=== PATIENT | female | born 1995 | race Caucasian/White ===

== ENCOUNTER 2025-06-13 11:30 | Emergency (ER) | payer BC, SELFPAY ==
--- OUTSIDE RECORDS SUMMARY | 2011-07-01 16:15 | XMS_ITS | Encounter Summary ---
Author Organization [facility] Address [address] [place] [address] Care Team Providers Care Roentgenologist Name Role Phone Juan C Preston MD Primary Care Provider [phone] Encounter Details Date Type Department Care Team (Late st Contact Info) Description 07/01/2011 4:15 PM CDT [facility] in [facility] [address] [place] [phone] Kandis Sutherland PA-C [facility] [address] [place] [address] [address] [place] [address] Social History Tobacco Use Types Packs/Day Years Used Date Smoking Tobacco: Never Smokeless Tobacco: Never Comments:no 2nd hand smoke a t home Alcohol Use Standard Drinks/Week Comments No 0 (1 standard drink = 0.6 oz pur e alcohol) Comments No Sex and Gender Information Value Date Recorded Sex Assigned at Female 10/23/2020 7:21 AM PHYSICIAN'S ASSISTANT Legal Sex Female 4:15 AM PHYSICIAN'S ASSISTANT Gender Identity Female 10/23/2020 7:21 AM PHYSICIAN'S ASSISTANT Sexual Orientation Don't know 07/29/2021 9: 43 PM PHYSICIAN'S ASSISTANT Sexual Orientation Straight 07/29/2021 9: 43 PM PHYSICIAN'S ASSISTANT documented as of this encounter Plan of Treatment Not on file documented as of this encounter Visit Diagnoses Not on filedocumented in this encounter Care Teams Roentgenologist Relationship Specialty Start Date End Date Juan C Preston MD [facility] Luciano Francis [address] [facility] [address] [place] [address] PCP - General 10/15/00 12/17/20 documented as of this encounter
--- OUTSIDE RECORDS SUMMARY | 2025-06-11 11:20 | XMS_ITS | Encounter Summary ---
Author Organization [facility] Address [address] [place] [address] Care Team Providers Care Air Conditioning Insulation Installer Name Role Phone Pcp, Pt Declines MD Primary Care Provider [phone] Reason for Visit * Reason Comments COUGH Encounter Details Date Type Department Care Team (Late st Contact Info) Description 06/11/2025 11:20 AM CDT Office Visit [facility] [address] [address] Myriam Healy V, DO [address] [place] [address] Sinusitis, unspecified chronicity, unspecified location (Primary Dx); Allergic rhinitis, unspecified seasonality, unspecified trigger Social History Tobacco Use Types Packs/Day Years Used Date Smoking Tobacco: Never Alcohol Use Standard Drinks/Week Comments Not Currently 0 (1 standard drink = 0.6 oz pur e alcohol) Comments No Sex and Gender Information Value Date Recorded Sex Assigned at Not on file Legal Sex Female 8:26 AM CDT Gender Identity Not on file Sexual Orientation Not on file documented as of this encounter Last Filed Vital Signs Vital Sign Reading Time Taken Comments Blood Pressure 110/81 06/11/2025 10:57 AM CDT Pulse 107 06/11/2025 10:57 AM CDT Temperature 36.2 C (97.2 F) 06/11/2025 10:57 AM CDT Respiratory Rate 18 06/11/2025 10:57 AM CDT Oxygen Saturation 98% 06/11/2025 10:57 AM CDT Inhaled Oxygen Concentration - - Weight 113.4 kg (250 lb) 06/11/2025 10:57 AM CDT Height 154.9 cm (5' 1) 06/11/2025 10:57 AM CDT Body Mass Index 47.24 06/11/2025 10:57 AM CDT documented in this encounter Nursing Notes * Rahel Mendoza LPN - 06/11/2025 11:20 AM CDT Leydi Banks is a 30 y.o.female presents to the Urgent Care for COUGH What cold symptoms are you experiencing?Cough Are you experiencing any wheezing? YES Do you have any new chest pain or shortness of breath? YES Are you coughing up any mucus? YES Do you have a history of asthma? YES Nose/Sinus/Ear Do you have a runny nose? YES Are you sneezing? YES Are you experiencing any nasal congestion? YES Are you experiencing any headaches?YES Do you have any facial or dental pain? YES Do you have any ear pain? YES Do you have any eye itching or irritation? YES Have you had a history of sinus infections? YES How long have you had these symptoms? 5 day(s) Have you had a fever? YES How high was your fever? felt feverish but not measured Are there any treatments you have tried? YES What products have you tried? otc Did the treatment help your symptoms? Has not changed Patient requests an excuse letter for work/school: No documented in this encounter Plan of Treatment Not on file documented as of this encounter Visit Diagnoses Diagnosis Sinusitis, unspecified chronicity, unspecified location- Primary Allergic rhinitis, unspecified seasonality, unspecified trigger documented in this encounter Care Teams Air Conditioning Insulation Installer Relationship Specialty Start Date End Date Pcp, [place] [address] PCP - General 03/27/20 documented as of this encounter
[2025-06-13] VITALS (18 sets, daily range): BP systolic 124–135; BP diastolic 65–84; PULSE 85–107; RESP 16–34; TEMP 36.6; O2SAT 89–96; BMI 48.2
--- NOTE | 2025-06-13 12:26 | CRLHL7_ITS ---
For Patients: As a result of the Cures Act, medical imaging exams and procedure reports are released immediately into your electronic medical record. You may view this report before your referring provider. If you have questions, please contact your health care provider. INDICATION: Shortness of breath, cough, and wheezing COMPARISON: None. TECHNIQUE: Frontal and lateral radiographic views of the chest. FINDINGS: No pneumothorax. No pleural effusion. No definite focal pulmonary consolidation. Normal heart size. No evident acute displaced rib fracture. IMPRESSION: No acute cardiopulmonary findings. Dictated by Dion Coburn MD @ 06/13/2025 1:40:55 PM (Electronically Signed)
--- OUTSIDE RECORDS SUMMARY | 2025-06-13 12:49 | XMS_ITS | Clinical Summary ---
Author Organization [facility] Address [address] [place] [address] Care Team Providers Care Materials Branch Chief Name Role Phone Pcp, Pt Declines Primary Care Provider [phone] Source Comments You are receiving this document as you are listed as the primary care provider,follow-up provider, or the patient has been referred to you for consultation.This is in compliance with the Medicare and[facility] Hospital[facility] EHR Incentive Program,which states Providers who transition their patient to another setting of careor provider of care or refers their patient to another provider of care shouldprovide summary care record for each transition of care or referral. [facility] Allergies Active Allergy Reactions Criticality Noted Date Comments Other Nausea And Vomiting Medium 03/27/2020 ANTIBIOTICS , stomach upset Medications etonogestrel-et hinyl estradiol (NUVARING) 0.12-0.015 MG/24HR vaginal ring INSERT VAGINALLY AND LEAVE IN PLACE FOR 3 CONSECUTIVE WEEKS THEN REMOVE AND INSERT NEW RING. USE CONTINUOUSLY. 0 Active omeprazole (PRILOSEC) 20 MG capsule 0 Active predniSONE (DELTASONE) 50 MG tablet Take 1 Tablet by mouth daily. 7 Tablet 0 Active Additional Information Patient not taking.Reported on 08/10/2024 gabapentin (NEURONTIN) 100 MG capsule Take 1-3 capsules up to 3 times daily 270 Capsule 3 0 Active metFORMIN XR (GLUCOPHAGE XR) 500 MG 24 hour release tablet Take by mouth. 4 Active traZODone (DESYREL) 50 MG tablet Take 1-2 Tablets (50-100 mg) by mouth at bedtime as needed. 4 Active buPROPion (WELLBUTRIN XL) 300 MG 24 hour release tablet Take 1 Tablet (300 mg) by mouth daily. 4 Active ALBUterol sulfate HFA 108 (90 Base) MCG/ACT inhaler 1-2 Puffs every 4 hours as needed. 5 Active amoxicillin-cla vulanate (AUGMENTIN) 875-125 mg per tablet Take 1 Tablet by mouth every 12 hours. 5 Active benzonatate (TESSALON) 100 MG capsule Take 1 Capsule (100 mg) by mouth three times a day as needed. 5 Active eszopiclone (LUNESTA) 1 MG tablet Take 1 Tablet (1 mg) by mouth at bedtime as needed. 5 Active hydrOXYzine HCl (ATARAX) 50 MG tablet Take 1-2 Tablets (50-100 mg) by mouth daily as needed. 5 Active zolpidem (AMBIEN) 5 MG tablet Take 1 Tablet (5 mg) by mouth at bedtime as needed. 5 Active buPROPion (WELLBUTRIN XL) 150 MG 24 hour release tablet Take 1 Tablet (150 mg) by mouth every morning. 5 Active gabapentin (NEURONTIN) 300 MG capsule Take 1 Capsule (300 mg) by mouth three times a day. 5 Active omeprazole (PRILOSEC) 20 MG capsule 1 capsule 30 minutes before morning meal Orally Once a day; Duration: 30 days Active predniSONE (DELTASONE) 20 MG tablet Take 2 Tablets (40 mg) by mouth daily. 5 Active predniSONE (DELTASONE) 20 MG tabletIndicatio ns:Allergic rhinitis, unspecified seasonality, unspecified trigger Take 60 mg po Q am x 3 days then take 40 mg po Q am x 3 days then take 20 mg po Q am Take with Food to Avoid GI Upset and Take in the morning or may cause difficulties sleeping 18 Tablet 5 Active doxycycline hyclate (VIBRA-TABS) 100 MG tabletIndicatio ns:Sinusitis, unspecified chronicity, unspecified location Take 1 Tablet (100 mg) by mouth two times a day for 10 days. 20 Tablet 5 06/21/20 25 Active Encounters Date Type Department Care Team Description 06/11/2025 11:20 AM CDT [facility] [place] [address] [place] [address] Myriam Healy DO Sinusitis, unspecified chronicity, unspecified location (Primary Dx); Allergic rhinitis, unspecified seasonality, unspecified trigger from Last 3 Months Social History Tobacco Use Types Packs/Day Years Used Date Smoking Tobacco: Never Tobacco Cessation:Counseling Given: Not Answered Alcohol Use Standard Drinks/Week Comments Not Currently 0 (1 standard drink = 0.6 oz pur e alcohol) Comments No Sex and Gender Information Value Date Recorded Sex Assigned at Not on file Legal Sex Female 8:26 AM CDT Gender Identity Not on file Sexual Orientation Not on file Last Filed Vital Signs Vital Sign Reading [...] Mass Index 47.24 06/11/2025 10:57 AM CDT Plan of Treatment Health Maintenance Due Date Last Done Comments Cervical Cancer Screening Due 1997 Hep C Screening (Preventive Services) 1997 HIV Screening (Preventive Services) 2013 Adult Preventive Visit 2015 HepB Vaccine (1) 2016 DTaP/Tdap/Td Vaccine (6 - Tdap) 05/16/2019 05/16/2009, 03/01/2002, 1997, Additional history exists COVID-19 Vaccine (4 - season) 2025 10/19/2021, 12/21/2020, 11/23/2020 Influenza Vaccine (#1) 2025 , 06/25/2018, 06/20/2009, Additional history exists Zoster/Shingles Vaccine (1 of 2) 2047 Hib Vaccine Aged Out 1997, 09/22, 1997 No longer eligible based on patient's age to complete this topic IPV (Polio) Vaccine Completed 03/01/2002, 1997, 1997 MCV4 Vaccine Completed 12/07/2013 HepA Vaccine Completed 01/23/2015, 12/07/2013 HPV Vaccine Completed 06/25/2018, 01/20, 01/23/2015 Meningococcal B Vaccine Aged Out No l onger eligible based on patient's age to complete this topic Pneumococcal Vaccine Aged Out No long er eligible based on patient's age to complete this topic Insurance [facility] Collusion [facility] Collusion [facility] Care Teams Materials Branch Chief Relationship Specialty Start Date End Date Pcp, Pt MD Balaji [place], [place] [address] PCP - General 03/27/20
--- OUTSIDE RECORDS SUMMARY | 2025-06-13 12:49 | XMS_ITS | Patient Health Record ---
Author Organization [facility] Address [address] [place] [address] Care Team Providers Care Window Installation Subcontractor Name Role Phone Jose Reddyshakira Primary Care Provider [phone] Darci Neves Unavailable [phone] Allergies No Known Allergies Reason For Referral No Information Medications Medication SIG (Take, Route, Frequency, Duration) Notes Start Date End Date Status Omeprazole 20 MG 1 capsule 30 minutes before morning meal Orally Once a day; Duration: 30 days Due for Annual exam, med check Active NuvaRing 0.12-0.015 MG/24HR [address] for 3 weeks, remove, and replace with a new ring after 7 day break Vaginal monthly; Duration: 90 days Unknown diazePAM 5 MG 1/2 to 1 tablet as needed vaginally once for vaginal pain; Duration: 10 days 09/28/2021 Unknown Social History Tobacco Use: Social History Observation Description Date Details (start date - stop date) Never Smoker NA - NA Tobacco Use/Smoking Question Answer Notes Are you a nonsmoker Problems Problem Type SNOMED Code ICD Code Onset Dates Problem Status W/U Status Risk Notes Problem Pubertal menorrhagia (finding) (378941499) Excessive menstruation at puberty (N92.2) Active confirmed Problem Anxiety (15134566) Anxiety (F41.9) Active confi rmed Problem von Willebrand disease (435007864) Von Willebrand disease (D68.0) Active confirmed Problem Menometrorrhagia (909454893) Menometrorrhagia (N92.1) Active confirmed Problem Mild recurrent major depression (67786521) Mild episode of recurrent major depressive disorder (F33.0) Active confirmed Problem Excessive and frequent menstruation (726966882) Excessive and frequent menstruation (N92.0) Active confirmed Plan Of Treatment No Information Insurance Providers Payer Name Payer Address Payer Phone Subscriber Number Group Number Insured Name Patient Relationship to Insured Coverage Start Date Coverage End Date [employer] - (Client Bill) [address] [place] [address] [id number] Leydi Banks Self - patient is the insured Medical (General) History Medical History History ICD Code Anemia Von Willebrands Disease Depression\Anxiety Asthma Surgical History Surgery Date(Month/Year) Tonsil and adniods Hymenectomy 2013
--- OUTSIDE RECORDS SUMMARY | 2025-06-13 12:49 | XMS_ITS | Encounter Summary ---
Author Organization [facility] Address [address] [place] [address] Care Team Providers Care Glazier Structural Glass Name Role Phone Brian Hammer MD Primary Care Provider [phone] Encounter Details Date Type Department Care Team (Late st Contact Info) Description 08/13/2021 [facility] [address] [place] [address] April Schmidt MD [address] [facility] [place] [address] Social History Tobacco Use Types Packs/Day Years Used Date Smoking Tobacco: Never Smokeless Tobacco: Never Comments:no 2nd hand smoke a t home Alcohol Use Standard Drinks/Week Comments No 0 (1 standard drink = 0.6 oz pur e alcohol) Comments No Sex and Gender Information Value Date Recorded Sex Assigned at Female 10/23/2020 7:21 AM PSYCHOLOGY TEACHER Legal Sex Female 4:15 AM PSYCHOLOGY TEACHER Gender Identity Female 10/23/2020 7:21 AM PSYCHOLOGY TEACHER Sexual Orientation Don't know 07/29/2021 9: 43 PM PSYCHOLOGY TEACHER Sexual Orientation Straight 07/29/2021 9: 43 PM PSYCHOLOGY TEACHER documented as of this encounter Plan of Treatment Not on file documented as of this encounter Visit Diagnoses Not on filedocumented in this encounter Care Teams Glazier Structural Glass Relationship Specialty Start Date End Date Brian Hammer MD [facility] [address] [place] [address] PCP - General Family Medicine 12/18/20 documented as of this encounter
--- OUTSIDE RECORDS SUMMARY | 2025-06-13 12:49 | XMS_ITS | Clinical Summary ---
Author Organization [facility] Address [address] [place] [address]. [place] [address] Care Team Providers Care Video Game Engineer Name Role Phone Brian Hammer MD Primary Care Provider [phone] Allergies Active Allergy Reactions Criticality Noted Date Comments No Known Allergies 03/16/2001 Medications norethindrone-e thinyl estradiol-iron (MICROGESTIN FE1.5/30) 1.5-30 MG-MCG tabletIndicatio ns:Menorrhagia Take 1 tablet by mouth daily Skip placebo pills until 3 packs are finished, take placebo pills in 3rd pack to have menses. 3 Package 3 12/07/2013 Active Active Problems Problem Noted Date Diagnosed Date Abnormal involuntary movement 11/10/2007 Overview (06/23/2015): Problem list name updated by automated process. Provider to review Sinusitis, chronic 02/28/2005 Overview (06/22/2015): Problem list name updated by automated process. Provider to review Resolved Problems Problem Noted Date Diagnosed Date Resolved Date Hypertrophy of tonsils with hypertrophy of adenoids 02/28/2005 11/10/2007 Overview (06/22/2015): Problem list name updated by automated process. Provider to review Immunizations Immunization Administration Dates Next Due COVID-19 Monovalent 18+ (Moderna) 12/21/2020,12/2020 DTAP (<7y) 03/01/2002 HEPA 12/07/2013 HIB (PRP-T) 06/26/1998, 8,1997, 7 HepB 1997,1997,1997 Historical DTP/aP 06/26/1998, 8,1997, 7 Influenza (IIV3) PF 08/18/2007 Influenza Intranasal Vaccine 06/20/2009,06/24/20 08 MMR (MMRII) 03/01/2002,06/26/1998 Meningococcal ACWY (Menactra ) 12/07/2013 Poliovirus, inactivated (IPV) 03/01/2002 ,06/26/1998,1997, 7 TDAP Vaccine (Boostrix) 05/16/2009 Varicella (Varivax) 06/02/2007,06/26/1998 Family History Medical History Relation Comments Genitourinary Problems Mother recurrent UTI - none as child Relation Status Comments Father Alive Mother Alive Social History Tobacco Use Types Packs/Day Years Used Date Smoking Tobacco: Never Smokeless Tobacco: Never Comments:no 2nd hand smoke a t home Alcohol Use Standard Drinks/Week Comments No 0 (1 standard drink = 0.6 oz pur e alcohol) Adolescent Education Answer Date Record ed Getting School Help Needed Not on file 07/08 Comments No Sex and Gender Information Value Date Recorded Sex Assigned at Female 10/23/2020 7:21 AM ESTERS AND EMULSIFIERS SUPERVISOR Legal Sex Female 4:15 AM ESTERS AND EMULSIFIERS SUPERVISOR Gender Identity Female 10/23/2020 7:21 AM ESTERS AND EMULSIFIERS SUPERVISOR Sexual Orientation Don't know 07/29/2021 9: 43 PM ESTERS AND EMULSIFIERS SUPERVISOR Sexual Orientation Straight 07/29/2021 9: 43 PM ESTERS AND EMULSIFIERS SUPERVISOR Last Filed Vital Signs Vital Sign Reading Time Taken Comments Blood Pressure 150/93 12/18/2020 5:53 PM CDT Pulse 106 12/18/2020 5:53 PM CDT Temperature 36.5 C (97.7 F) 12/18/2020 11:07 AM CDT Respiratory Rate 16 12/18/2020 11:0 7 AM CDT Oxygen Saturation 93% 12/18/2020 5:53 PM CDT Inhaled Oxygen Concentration - - Weight 72.9 kg (160 lb 11.5 oz) 12/07/2013 3:24 PM CDT Height 156 cm (5' 1.42) 12/07/2013 3:24 PM CDT Body Mass Index 29.96 12/07/2013 3:24 PM CDT Plan of Treatment Health Maintenance Due Date Last Done Comments ADVANCE CARE PLANNING 1997 ANNUAL REVIEW OF HM ORDERS 1997 HIV SCREENING 2012 YEARLY PREVENTIVE VISIT 12/07/2014 12/08/19 14, 05/16/2009, 06/16/2001 HEPATITIS C SCREENING 2015 PAP 2018 DTAP/TDAP/TD VACCINE (7 - Td or Tdap) 05/16/2019 05/16/2009, 03/01/2002, 06/26/1998, Additional history exists PHQ-2 (once per calendar year) 2024 COVID-19 VACCINE ( season) 2025 12/21/2020, 11/23/2020 INFLUENZA VACCINE (#1) 2025 8, 09/22/2016, 09/22/2016, Additional history exists ZOSTER VACCINE (1 of 2) 2047 HEPATITIS B VACCINE Completed 1997, 1997, 1997, Additional history exists MENINGITIS VACCINE Completed 12/07/2013, 12/07/2013 HPV VACCINE Completed 06/25/2018, 01/20, 01/31/2017, Additional history exists PNEUMOCOCCAL VACCINE: PEDIATRICS (0 to 5 YEARS) AND AT-RISK PATIENTS (6 to 49 YEARS) Aged Out No longer eligible based on patient's age to complete this topic Insurance [facility] Care Teams Video Game Engineer Relationship Specialty Start Date End Date Brian Hammer MD [facility] [address] [place] [address] PCP - General Family Medicine 12/18/20
--- OUTSIDE RECORDS SUMMARY | 2025-06-13 12:49 | XMS_ITS | Encounter Summary ---
Author Organization [facility] Address [address] [place] [address]. [place] [address] Care Team Providers Care Production Supv Name Role Phone Juan C Preston MD Primary Care Provider [phone] Brian Hammer MD Primary Care Provider [phone] Encounter Details Date Type Department Care Team (Late st Contact Info) Description 06/03/2001 Abstract [facility] [address] [place] [address] Rohini Maldonado Social History Tobacco Use Types Packs/Day Years Used Date Smoking Tobacco: Never Assessed Comments:no 2nd hand smoke a t home Alcohol Use Standard Drinks/Week Comments Not Asked 0 (1 standard drink = 0.6 oz pur e alcohol) Comments Unknown Sex and Gender Information Value Date Recorded Sex Assigned at Female 10/23/2020 7:21 AM TRAY SETTER Legal Sex Female 4:15 AM TRAY SETTER Gender Identity Female 10/23/2020 7:21 AM TRAY SETTER Sexual Orientation Don't know 07/29/2021 9: 43 PM TRAY SETTER Sexual Orientation Straight 07/29/2021 9: 43 PM TRAY SETTER documented as of this encounter Plan of Treatment Not on file documented as of this encounter Visit Diagnoses Not on filedocumented in this encounter Care Teams Production Supv Relationship Specialty Start Date End Date Juan C Preston MD [facility] [address] [facility] [address] [place] [address] PCP - General 10/15/00 12/17/20 Brian Hammer MD [facility] [address] [place] [address] PCP - General Family Medicine 12/18/20 documented as of this encounter
--- OUTSIDE RECORDS SUMMARY | 2025-06-13 12:49 | XMS_ITS | Clinical Summary ---
Author Organization [facility] Address [address] [place] [address] Care Team Providers Care Director Of Philanthropy Name Role Phone [facility], [facility] Primary Care Prov ider Apple Lee PA Unavailable [phone] Unavailable [phone] Unavailable [phone] Allergies Active Allergy Reactions Criticality Noted Date Comments Doxycycline Stomach Upset High 11/11/2016 side effect - pt reported Medications omeprazole (PRILOSEC) 20 mg Delayed-Release capsule Take 20 mg by mouth. PRN 03/12/20 20 Active gabapentin (NEURONTIN) 100 mg capsule 4 capsules nightly 10/05/19 22 Active traZODone (DESYREL) 50 mg tablet 2 tabs nightly 10/29/19 22 Active albuterol HFA (PRO-AIR; VENTOLIN; PROVENTIL) 90 mcg/actuation inhalerIndicatio ns:Breathing problem,Exercise induced bronchospasm (HC) Inhale 1-2 Puffs by mouth every 4 hours if needed for Shortness Of Breath or Wheezing. 1 Each 3 08/24/20 24 Active iron,carbonyl/as corbic acid (VITRON-C ORAL) Take by mouth. Active buPROPion 300 mg Extended-Release tabletIndication s:Morbid obesity with BMI of 45.0-49.9, adult (HC) Take 1 Tablet (300 mg) by mouth once daily in the morning. To be started after completing 2 weeks on the 150 mg daily dose if tolerating well. 30 Tablet 1 03/21/20 25 Active buPROPion 150 mg Extended-Release tabletIndication s:Morbid obesity with BMI of 45.0-49.9, adult (HC) Take 1 Tablet (150 mg) by mouth once daily in the morning. 14 Tablet 03/21/20 25 Active fluticasone propion-salmeter oL (ADVAIR) 100-50 mcg/dose diskus inhalerIndicatio ns:Subacute cough Inhale 1 Puff by mouth two times daily. 60 Each 03/31/20 25 Active Zepbound 7.5 mg/0.5 mL subcutaneous vialIndications: Morbid obesity with BMI of 45.0-49.9, adult (HC) INJECT 0.5 ML (7.5 MG) UNDER THE SKIN ONCE WEEKLY (0.5ML= 50 UNITS) 2 mL 2 04/13/20 25 Active benzonatate (TESSALON) 100 mg capsuleIndicatio ns:Acute cough Take 1 Capsule (100 mg) by mouth 3 times daily if needed for Cough. 21 Capsule 05/22/20 25 Active benzonatate 100 mg capsuleIndicatio ns:Acute cough Take 1 Capsule (100 mg) by mouth 3 times daily if needed for Cough. 21 Capsule 03/08/20 25 025 Discontinued Active Problems Patient Care Coordination No te Formatting of this note migh t be different from the original. Weight Management Patient Binder: Request sent 10/13/2023 Problem Noted Date Diagnosed Date Cervical cancer screening 01/26/2025 Overview (01/26/2025): 12/2024 NIL/HPV negative. Plan: Pap/HPV due 12/2029. 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 Provider to review Encounters Date Type Department Care Team Description 06/13/2025 Travel 05/20/2025 Refill [facility] [address] [place] [address] Edwina Valenzuela NP Refill Request (Benzonatate) 05/11/2025 1:00 PM CDT Telemedicine [facility] [address] [facility] [address] Medical Nutrition Therapy; Telehealth ([facility] ) 04/13/2025 Refill [facility] [address] [place] [address] Apple Lee PA Refill Request (Zepbound) 03/31/2025 12:35 PM CDT Office Visit [facility] [address] [facility] [place] [address] Ana Salvador PA Cough (for weeks) 03/31/2025 Travel from Last 3 Months Immunizations Immunization Administration Dates Next Due COVID-19 vaccine (Moderna Kevin hubert 50mcg/0.25mL) PF, MDV 10/19/2021 DTP 06/26/1998, 8,1997,07/25 DTaP 03/01/2002 HPV 9 (Gardasil 9) 06/25/2018,01/31/2017 Hepatitis A (Peds) 01/23/2015,12/07/2013 Hepatitis B, Unspecified 1997,1997,0 1997 Hib Conjugate, Unspecified 06/26/1998,,1997,07/25 Human Papilloma Virus Vaccine 01/23/2015 Inactivated Polio Vaccine 03/01/2002,01/1998,1997,07/25 Influenza Virus, Unspecified 09/22/2016, 06/20/2009,06/24/2008,08/18 Influenza, IIV4 06/25/2018 MMR 03/01/2002,06/26/1998 Meningococcal Vaccine (Menactra) 12/07/2013 Oral Polio Vaccine 1997,1997 Tdap 05/16/2009 Varicella Vaccine 06/02/2007,06/26/1998 Family History Medical History Relation Name Comments Anxiety disorder Father Depression Father Anxiety disorder Half-Brother Depression Half-Brother Anxiety disorder Mother Depression Mother Relation Name Status Comments Father Half-Brother Alive Mother Social History Tobacco Use Types Packs/Day Years Used Date Smoking Tobacco: Never Passive Smoke Exposure: Never Smokeless Tobacco: Never Tobacco Cessation:Counseling Given: Yes Alcohol Use Standard Drinks/Week Comments Yes 0 (1 standard drink = 0.6 oz pur e alcohol) rarely PHQ-2 Answer Date Recorded PHQ-2 TOTAL SCORE 0 03/31/2025 Social Connections Answer Date Recorded Do you often feel lonely or isolated from those around you? 0 08/19/2024 Financial Resource Strain Answer Date R ecorded Difficulty of Paying Living Expenses 3 08/19/2024 Difficulty of Paying Living Expenses Not on file 08/19/2024 Food Insecurity Answer Date Recorded Do you worry your food will run out before you are able to buy more? 1 08/19/2024 Transportation Needs Answer Date Record ed Does lack of transportation keep you from medica l appointments? 1 08/19/2024 Does lack of transportation keep you from work, meetings or getting things that you need? 1 08/19/2024 Housing Stability Answer Date Recorded What is your housing situation today? 1 08/19/2024 Utilities Answer Date Recorded Do you have trouble paying f or utilities (for example, heat, electricity, water, phone)? 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 Gender Identity Not on file Sexual Orientation Not on file Obstetrics History Last Filed Vital Signs Vital Sign Reading Time Taken Comments Blood Pressure 104/72 03/31/2025 12:40 PM CDT Pulse 80 03/31/2025 12:40 PM CDT Temperature 37 C (98.6 F) 03/31/2025 12:40 PM CDT Respiratory Rate - - Oxygen Saturation 97% 03/31/2025 12:40 PM CDT Inhaled Oxygen Concentration - - Weight 116.1 kg (256 lb) 02/28/2025 2:00 PM CDT Height 154.9 cm (5' 0.98) 02/28/2025 2:00 PM CD T Body Mass Index 48.4 02/28/2025 2:00 PM CDT Plan of Treatment Upcoming Encounters Date Type Department Care Team (Late st Contact Info) Description 08/03/2025 12:30 PM POLICE WORKER Telemedicine [facility] Bess Barcenas [facility] [address] [place] [id number] Helena Reina, RD [address] [place] [id number] Health Maintenance Due Date Last Done Comments HIV for age 15-65 2012 Hepatitis C screening for age 18-79 2015 Tetanus booster 05/16/2019 05/16/2009 COVID-19 vaccine series ( season) 2025 10/19/2021, 12/21/2020, 11/23/2020 Influenza Vaccine (#1) 2025 8, 09/22/2016, 06/20/2009, Additional history exists BMI (ht and wt on same day) for age 18+ 02/28/2026 02/28/2025, 02/16/2025, 12/16/2024, Additional history exists Depression screening for age 12+ 03/31/2026 03/31/2025, 11/11/2016 Pap test for age 21-65 01/06/2030 01/06/2025, 2024 RSV vaccine for adults or (1 - 1-dose 75+ series) 2072 Hepatitis B series for 19+ Completed 11/28, 1997, 1997 HPV series for age 9-45 Completed 06/25/20 18, 01/31/2017, 01/23/2015 Pneumococcal series for age 6-49 Aged Out No longer eligible based on patient's age to complete this topic Procedures Procedure Name Priority Date/Time Associated Diagnosis Comments UNDERPRESSER HAND THIN PREP PAP SCREEN IMAGED Routine 01/06/2025 1:25 PM CDT Cervical cancer screening from Last 3 Months or Most Recently Relevant to Health Maintenance Results * UNDERPRESSER HAND THIN PREP PAP SCREEN IMAGED (01/06/2025 1:25 PM CDT) Case Report Gynecologic Cytology Report Case: [id number] Authorizing Provider: Evon Briones DO Collected: 01/06/2025 1325 Ordering Location: [facility] Received: 01/06/2025 1500 Clinic First Screen: Brock Coy Specimen: UNDERPRESSER HAND ThinPrep Vial Screening, Cervical 01/25/2025 1:18 PM CDT [facility] INTERPRETATION/ RESULT NEGATIVE FOR INTRAEPITHELIAL LESION OR MALIGNANCY (NIL) (none) 01/25/2025 1:18 PM CDT [facility] at 1318 CDT SPECIMEN ADEQUACY Satisfactory for evaluation Endocervical component present 01/25/2025 1:18 PM CDT [facility] HPV REQUEST HPV and PAP 01/25/2025 1:18 PM CDT [facility] Date of LMP 11/29/2024 01/25/2025 1:18 PM CDT [facility] Last Pap Date unknown 01/25/2025 1:18 PM CDT [facility] Last Pap Result NIL 1:18 PM CDT [facility] Abnormal Pap or Orange Bx in last 5 years No 01/25/2025 1:18 PM CDT [facility] Menstrual Status Regular Periods 01/25/2025 1:18 PM CDT [facility] Orange Bx Done Today No 01/25/2025 1:18 PM CDT [facility] Additional Information None given 01/25/2025 1:18 PM CDT [facility] Comment: Cytology is screened at [facility] - [address], [place] [address] [facility] - [address], [place] [address] and [facility] - [address] [place] [address] Interpreted at [facility] - [address] [facility] [place] [address] Automated Review Successful 01/25/2025 1:18 PM CDT [facility] Comment:Specimen processed s uccessfully by automated foundation relations manager device, ThinPrep Imaging System, [employer] ANCILLARY TESTING UNDERPRESSER HAND HPV Ordered, Please see separate report 01/25/2025 1:18 PM CDT [facility] Note The pap test is a screening technique, not a diagnostic procedure. It is used primarily to screen for squamous cancers and precursor lesions. Published studies have shown that it is subject to both false negative and false positive results. The pap test should not be used as the sole means to diagnose or exclude pre-malignant and malignant lesions. 01/25/2025 1:18 PM CDT [facility] Other (Cervical) Non-Blood / Unknown 01/06/2025 1:25 PM CDT 01/06/2025 3:00 PM CDT us Evon Briones DO PATHOLOGY/CYTOLOGY Final Re sult [facility] [address] [place] [address], [place] from Last 3 Months or Most Recently Relevant to Health Maintenance Insurance [employer] [place] Care Teams Director Of Philanthropy Relationship Specialty Start Date End Date Clinic, [facility] [address] [place] [address] PCP - General 12/14/20 Apple Lee PA [address] [place] [address] Physician Marker Machine Attendant 10/13/[address] [address] Rehab Liaison 10/13/[address] [address] Registered Dietitian Rehab Liaison 03/10/24
[2025-06-13 12:54] LABS: HCO3 VBG 26 mmol/L (21-28); PCO2 VBG 41 mmHG (40-50); PO2 VBG 37.6 mmHG (25-47); pH VBG 7.413 (7.32-7.43)
--- NOTE | 2025-06-13 12:55 | ED_ITS ---
HPI - SOB/Dyspnea General Date Seen: 06/13/25 Chief Complaint: Shortness of Breath/Dyspnea Stated Complaint: SOB Time Seen by Provider: 06/13/25 12:22 Source: patient, family, RN notes reviewed and old records reviewed Mode of arrival: ambulatory Limitations: no limitations History of Present Illness HPI Narrative: Patient is a delightful 30-year-old female who presents here with shortness of breath, she was seen in urgent care over the weekend. And diagnosed with asthma exacerbation, given prednisone, along with the Zithromax. Over the course of the weekend, she seemingly worsened, was using her inhaler more. And used albuterol this morning, she speaks in broken sentences according to her partner increased cough, no fevers, no leg swelling, no chest pain associated with this. History of asthma since she was younger, no history of intubations, or significant hospitalizations. MD elicited complaint: shortness of breath Pertinent past history: asthma Exacerbating factors: lying flat Relieving factors: bronchodilators and upright position Known history of: asthma Associated symptoms: wheezing and sputum production Treatment prior to arrival: bronchodilator Related Data Home oxygen amount: none Home Medications ?Medication ?Instructions ?Recorded ?Confirmed Sk-Doxycycline Hyclate 06/13/25 Zepbound 06/13/25 albuterol 06/13/25 gabapentin 06/13/25 hydroxyzine HCl 06/13/25 prednisone 06/13/25 trazodone 06/13/25 Allergies Allergy/AdvReac Type Severity Reaction Status Date / Time No Known Drug Allergies Allergy Verified 06/13/25 11:40 Review of Systems Status of ROS: Reports: 10 or more systems reviewed and unremarkable except as noted in History and below Exam Narrative: Exam Narrative: Patient is seen in room 2, she appears to be in no distress but clearly will working to breathe, which and also speaking in partial sentences. Pupils equal round reactive to light there is no scleral icterus redness or TMs are normal oropharynx is normal, her neck is supple she does not have any wheezes on expiration, respiratory, she perceives to be hyperinflated, no crackles heart sounds no clicks murmurs or gallops her abdomen is soft, there is no guarding no organomegaly bowel sounds are normal. She appears to have no edema of her lower extremity she moves extremities independently and well. Const: Vital Signs, click to edit/add: Vital Signs - 24 hr 06/13/25 11:34 06/13/25 13:21 06/13/25 13:22 Temperature 97.8 F Pulse Rate 93 91 Pulse Rate [Pulse Oximeter] 101 H Respiratory Rate 34 H 17 22 Blood Pressure 135/78 Blood Pressure [Ri ght Upper Arm] 124/84 Pulse Oximetry 93 94 91 Oxygen Delivery Me thod Room Air 06/13/25 13:30 06/13/25 13:35 06/13/25 13:36 Temperature Pulse Rate 85 88 91 Pulse Rate [Pulse Oximeter] Respiratory Rate 23 20 32 H Blood Pressure 135/70 Blood Pressure [Ri ght Upper Arm] Pulse Oximetry 89 91 91 Oxygen Delivery Me thod 06/13/25 13:45 06/13/25 14:00 06/13/25 14:01 Temperature Pulse Rate 90 91 88 Pulse Rate [Pulse Oximeter] Respiratory Rate 25 H 21 24 Blood Pressure 132/65 Blood Pressure [Ri ght Upper Arm] Pulse Oximetry 90 91 92 Oxygen Delivery Me thod 06/13/25 14:02 06/13/25 14:15 06/13/25 14:30 Temperature Pulse Rate 98 89 85 Pulse Rate [Pulse Oximeter] Respiratory Rate 23 24 16 Blood Pressure Blood Pressure [Ri ght Upper Arm] Pulse Oximetry 91 92 Oxygen Delivery Me thod 06/13/25 14:46 06/13/25 15:05 06/13/25 15:15 Temperature Pulse Rate 101 H 95 107 H Pulse Rate [Pulse Oximeter] Respiratory Rate 22 22 30 H Blood Pressure Blood Pressure [Ri ght Upper Arm] Pulse Oximetry 92 93 91 Oxygen Delivery Me thod 06/13/25 15:30 06/13/25 15:45 Temperature Pulse Rate 93 95 Pulse Rate [Pulse Oximeter] Respiratory Rate 16 22 Blood Pressure Blood Pressure [Ri ght Upper Arm] Pulse Oximetry 95 92 Oxygen Delivery Me thod Course Reevaluation(s) Time of Reevaluation #1: 15:50 Reevaluation #1: Recheck of the patient show she has absolutely no wheezing she feels a lot better, her saturations are stabilized at 94%, respiratory therapy saw her again, and said she was doing much better with this. I think it would be reasonable to discharge her home at this point, and use her MDI prednisone antibiotics, will return here if increasing shortness of breath or other issues, troponin x2 is negative, D-dimer was negative also. Vital Signs Vital signs: Initial Vital Signs Temperature 97.8 F 06/13/25 11:34 Temperature Source Temporal Artery Scan 06/13/25 11:34 Pulse Rate 101 H 06/13/25 11:34 Respiratory Rate 34 H 06/13/25 11:34 Blood Pressure 124/84 06/13/25 11:34 Blood Pressure Mean 97 06/13/25 11:34 Pulse Oximetry 93 06/13/25 11:34 Oxygen Delivery Method Room Air 06/13/25 11:34 Vital Signs Temperature 97.8 F 06/13/25 11:34 Pulse Rate 101 H 06/13/25 11:34 Respiratory Rate 34 H 06/13/25 11:34 Blood Pressure 124/84 06/13/25 11:34 Pulse Oximetry 93 06/13/25 11:34 Oxygen Delivery Method Room Air 06/13/25 11:34 Temperature 97.8 F 06/13/25 11:34 Pulse Rate 95 06/13/25 15:45 Respiratory Rate 22 06/13/25 15:45 Blood Pressure 132/65 06/13/25 14:01 Pulse Oximetry 92 06/13/25 15:45 Oxygen Delivery Method Room Air 06/13/25 11:34 Medications Administered Medications: Discontinued Medications Generic Name Dose Route Start Last Admin Trade Name Tresq PRN Reason Stop Dose Admin Albuterol 2.5 mg 06/13/25 14:17 06/13/25 14:23 Albuterol Sulfate 2.5 Mg/3 Ml Vial.Neb NEB 06/13/25 14:18 2.5 mg ONCE ONE Administration Albuterol/Ipratropium 1 neb 06/13/25 12:26 06/13/25 13:27 Iprat-Albut 0.5-2.5 Mg/3 Ml Neb IH 06/13/25 12:27 1 neb ONCE ONE Administration Sodium Chloride 1,000 mls @ 1,000 mls/hr 06/13/25 12:30 06/13/25 14:22 0.9 % Sodium Chloride 1000 Ml IV 06/13/25 13:29 Infused .Q1H DAI Infusion Methylprednisolone Sodium Succinate 125 mg 06/13/25 12:28 06/13/25 13:27 Methylprednisolone Sod Succ 62.5 Mg/Ml (125) IVP 06/13/25 12:29 125 mg ONCE ONE Administration MDM - SOB/Dyspnea MDM Narrative Medical decision making narrative: Life-threatening differential diagnosis includes occluded COPD exacerbation, pulmonary edema, acute coronary syndromes, pulmonary embolism, pneumonia, and pneumothorax. Other differential diagnosis considerations include asthma, bronchitis as well as other etiologies She is actually in some moderate distress, I would like to gets a cap gas, chest x-ray, respiratory consult give her some nebulize treatments, and go from there. She was comfortable this plan. Medical Records Attestation: I reviewed the patient's medical records. Lab Data Attestation: I reviewed the patient's lab results. Labs: Lab Results 06/13/25 06/13/25 Range/Units 12:27 12:40 WBC 13.53 H (4.50-11.00) K/uL RBC 4.71 (4.00-5.20) m/uL Hgb 12.7 (12.0-16.0) gm/dL Hct 39.0 (33.0-51.0) % MCV 83 (80-100) fL MCH 27 (26-34) pg MCHC 33 (32-36) gm/dL RDW Coeff of Ronan 12.9 (11.5-15.5) % Plt Count 320 (140-440) K/uL Neut % (Auto) 78.9 H (42.0-72.0) % Lymph % (Auto) 8.3 L (20-44) % Mcdonald % (Auto) 8.6 (0.0-11.0) % Eos % (Auto) 3.8 (0.0-7.0) % Baso % (Auto) 0.2 (0.0-3.0) % Neut # (Auto) 10.70 H (1.7-7.0) K/uL Lymph # (Auto) 1.10 (0.90-2.90) K/uL Mcdonald # (Auto) 1.20 H (0.00-0.90) K/UL Eos # (Auto) 0.50 (0.00-0.50) K/uL Baso # (Auto) 0.00 (0.00-0.30) K/uL Abs Immat Gran (auto) 0.00 (0.00-0.30) K/uL Imm/Tot Granulo (auto) 0.2 % INR 0.96 (0.91-1.10) APTT 32 (23-33) Seconds D-Dimer Quant (PE/DVT) 0.15 (0.00-0.50) ug/ml VBG pH 7.413 (7.32-7.43) VBG pCO2 41 (40-50) mmHG VBG pO2 37.6 (25-47) mmHG VBG HCO3 26 (21-28) mmol/L Sodium 139 (135-149) mmol/L Potassium 3.8 (3.6-5.1) mmol/L Chloride 106 (96-114) mmol/L Carbon Dioxide 24 (20-32) mmol/L Anion Gap 9 (7-15) mEq/L BUN 15 (5-24) mg/dL Creatinine 0.8 (0.5-1.5) mg/dL Estimated Creat Clear 79.00 Estimated GFR 103 ml/min Glucose 92 (60-115) mg/dL Calcium 9.1 (8.4-10.6) mg/dL Magnesium 1.9 (1.5-2.6) mg/dL C-Reactive Protein 3.0 H (0.5-1.0) mg/dL NT-Pro-B Natriuret Pep 272 (See Note) pg/mL SARS-CoV-2 (PCR) Negative SARS-CoV-2 (Negative) Influenza Type A (PCR) Negative PCR FLU A (Negative) Influenza Type B (PCR) Negative PCR FLU B (Negative) RSV (PCR) Negative PCR RSV (Negative) POC Troponin I 0.05 H (0.01-0.04) ng/ml ECG Data Attestation: I personally reviewed and interpreted this ECG as follows: ECG interpretation date: 06/13/25 Prior ECG tracings: not available for review Interpretation: EKG shows normal sinus rhythm with a ventricular rate of [address] wave changes, QRS is 70 milliseconds QT is 354 and QTC is 437. Assessment: Normal EKG no acute finding Discharge Plan Discharge Clinical Impression: Asthma with acute exacerbation Patient Disposition: Home w/ Parent or Adult Condition: Improved Instructions: Asthma (ED), How to Use a Metered-Dose Inhaler (ED), Wheezing (ED) Additional Instructions: We will discharge home, I think he should take it easy for a couple days and follow-up with primary care within 2 days, increasing shortness of breath, coughing, decreased exercise tolerance he need to come back, continue with her prednisone in your antibiotic as directed. Activity Level: Light activity Discharge Diet: Regular Prescriptions: No Action Sk-Doxycycline Hyclate prednisone Zepbound gabapentin trazodone hydroxyzine HCl albuterol Follow Up/Referrals: Ana Salvador PA [Primary Care Provider, [facility]] [facility] Procedures ABG Interpretation ABG Results: 06/13/25 12:40 VBG pH 7.413 VBG pCO2 41 VBG pO2 37.6 VBG HCO3 26
[2025-06-13 12:58] LABS: Hematocrit* 39.0 % (33.0-51.0); Hemoglobin* 12.7 gm/dL (12.0-16.0); Immature Granulocytes Pct Auto 0.2 %; Mean Corpuscular HGB Conc 33 gm/dL (32-36); Mean Corpuscular Hemoglobin 27 pg (26-34); Mean Corpuscular Volume 83 fL (80-100); RDW Coefficient of Variation % 12.9 % (11.5-15.5); Red Blood Count* 4.71 m/uL (4.00-5.20); White Blood Count* 13.53 K/uL (4.50-11.00)
[2025-06-13 13:06] LABS: Immature Granulocytes Abs Auto 0.00 K/uL (0.00-0.30); Lymphocytes Absolute Auto 1.10 K/uL (0.90-2.90); Slide Review Reflex No
[2025-06-13 13:07] LABS: Troponin, Point-of-Care* 0.05 ng/ml (0.01-0.04)
--- NOTE | 2025-06-13 13:08 | RESP.RT ---
Addendum entered by Chadwick Valencia, AGRICULTURAL EXTENSION SPECIALIST, COMPLIANCE ADVISOR 06/13/25 13:21: Wheeze and crackles noted clears with cough Original Note: Patient lying in bed, BBS with fir air movement, bilateral expiratory wheeze noted, respiratory rate 24/minute. DuoNeb given with small volume nebulizer. mouth piece, and medical Oxygen flow meter. Patient use treatment well. Post treatment, BBS with more air movement and wheeze less noticeable. Respiratory rate 20/minute. Treatment promoted fair productive cough for small amount gren/creme colored thick secretions. Patient has home nebulizer for Albuterol and MDI Albuterol. Spacer given to patient with discussion on use with MDI, patient understands benefit of using a spacer.
[2025-06-13] MEDS: IPRAT-ALBUT 0.5-2.5 MG/3 ML NEB 1 NEB IH (13:27)
[2025-06-13] MEDS: METHYLPREDNISOLONE SOD SUCC 62.5 MG/ML (125) 125 MG IVP (13:27)
[2025-06-13 13:35] LABS: PCR FLU A Negative PCR FLU A (Negative); PCR FLU B Negative PCR FLU B (Negative); PCR RSV Negative PCR RSV (Negative); SARS PCR* Negative SARS-CoV-2 (Negative)
[2025-06-13 14:20] LABS: INR 0.96 (0.91-1.10); Prothrombin Time 13.5 Seconds
[2025-06-13] MEDS: ALBUTEROL SULFATE 2.5 MG/3 ML VIAL.NEB NEB (14:23)
[2025-06-13 14:27] LABS: D Dimer Quantitative* 0.15 ug/ml (0.00-0.50)
[2025-06-13 15:06] LABS: Chloride* 106 mmol/L (96-114); Potassium* 3.8 mmol/L (3.6-5.1); Sodium* 139 mmol/L (135-149)
[2025-06-13 15:09] LABS: Anion Gap 9 mEq/L (7-15); Carbon Dioxide* 24 mmol/L (20-32)
[2025-06-13 15:10] LABS: Calcium* 9.1 mg/dL (8.4-10.6); Glucose* 92 mg/dL (60-115)
--- NOTE | 2025-06-13 15:20 | RESP.RT ---
PEP with Aerobika, explaned use and benefits of Aerobika PEP to patient and family. Patient made good exhalation effort with fair chest shake, promoted good, forceful cough for thick green/creme colored secretions.
[2025-06-13 15:23] LABS: Blood Urea Nitrogen* 15 mg/dL (5-24); Creatinine* 0.8 mg/dL (0.5-1.5); Est. Creatinine Clearance* 79.00; Estimated Glomerular Filt Rate 103 ml/min; NT Pro B Type NatriureticPept* 272 pg/mL (See Note)
[2025-06-13 15:54] LABS: Troponin, Point-of-Care* 0.00 ng/ml (0.01-0.04)
--- NOTE | 2025-06-13 15:59 | RESP.RT ---
Assessment; patient lying in bed, clear voice, good use of Aerobika, increased exhalation with increased chest shake noted. Promoted good forceful cough productive cough. BBS with no wheeze or rhonchi noted, fair to shallow breathing. On room air, SaO2 95%.
== END 2025-06-13 16:03 | disposition home or self-care (01) ==
PROVIDERS: Emergency Provider Family Medicine; PCP Physician Assistant
DX: J45.901 Unspecified asthma with (acute) exacerbation (principal)
CPT/HCPCS: 36415; 71046; 80048; 82803; 83735; 83880; 84484; 85025; 85379; 85610; 85730; 86140; 87631; 93005; 94640; 94664; 94761; 96374; 99284; 99285; J2919; J7030